=== PATIENT | female | born 1940 | race Caucasian/White ===

== ENCOUNTER → 2017-11-14 | Outpatient (CLI) | payer MEDICARE, OTHER ==
[~2017-11-14] MED LIST: ACET500 PO; ASPI325 PO; CALCIUM PO; CELE200 PO; CITA20 PO; CYCL0.05OP BOTHEYES; Celebrex200 MG PO; ERGO400 PO; FAMO20 PO; HYDACE5 PO; Hair, Skin & N1 EACH PO; IBUP800 PO; LEVSOD100 PO; LEVSOD50 PO; MAG PO; OMEP20ER PO; Prilosec Otc20 MG; SODCHL2SO OD; TOCO400 PO; TRAM50 PO; [UNRECOGNIZED DRUG - OTHER] PO
== END | disposition home or self-care (01) ==
LOC: PLD 12:40 → LAB SHORT 12:40
DX: D48.5 Neoplasm of uncertain behavior of skin (principal)
CPT/HCPCS: 88305

== ENCOUNTER 2018-08-17 11:31 | Day surgery (SDC) | payer MEDICARE, OTHER ==
[~2018-08-17] VITALS: Ht 162.6 cm; Wt 59.5 kg
== END 2018-08-17 13:35 | disposition home or self-care (01) ==
LOC: ORSCSDS 11:31
PROVIDERS: Internal Medicine Gastroenterology
PROC: 0DB98ZX Excision of Duodenum, Via Natural or Artificial Opening Endoscopic, Diagnostic (ICD-10-PCS; principal; 2018-08-17 12:45)
PROC: 0DBH8ZX Excision of Cecum, Via Natural or Artificial Opening Endoscopic, Diagnostic (ICD-10-PCS; principal; 2018-08-17 12:45)
PROC: 0DB68ZX Excision of Stomach, Via Natural or Artificial Opening Endoscopic, Diagnostic (ICD-10-PCS; principal; 2018-08-17 12:45)
DX: R10.13 Epigastric pain (principal); K21.9 Gastro-esophageal reflux disease without esophagitis; Z12.11 Encounter for screening for malignant neoplasm of colon; D12.0 Benign neoplasm of cecum; K29.80 Duodenitis without bleeding; K29.70 Gastritis, unspecified, without bleeding; K57.30 Diverticulosis of large intestine without perforation or abscess without bleeding; K64.8 Other hemorrhoids; E03.9 Hypothyroidism, unspecified; Z79.899 Other long term (current) drug therapy
CPT/HCPCS: 88305; 88342; J2704; J7120

== ENCOUNTER 2020-09-16 08:16 | Emergency (ER) | payer MEDICARE, OTHER ==
[~2020-09-16] VITALS: Ht 167.6 cm; Wt 72.6 kg
[~2020-09-16 08:16] MED LIST changes: +Macrobid 100 M100 MG PO; +Pyridium200 MG PO
[2020-09-16] MEDS ORDERED: REMERON15 M3 PO (08:34)
[2020-09-16] MEDS ORDERED: EUTHYROX88 MC1 (08:34)
[2020-09-16 08:42] LABS: BASOPHILS ABSOLUTE AUTO 0.04 K/mm3 (0.00-0.23); BASOPHILS PERCENT AUTO 1 % (0-2); EOSINOPHILS ABSOLUTE AUTO 0.21 K/mm3 (0.00-0.68); EOSINOPHILS PERCENT AUTO 4 % (0-6); Hematocrit 41.1 % (33.0-51.0); Hemoglobin 13.7 g/dL (11.5-16.0); IMMATURE GRAN ABSOLUTE AUTO 0.01 K/mm3 (0.00-0.10); IMMATURE GRAN PERCENT AUTO 0 % (0-1); LYMPHOCYTES ABSOLUTE AUTO 2.09 K/mm3 (0.84-5.20); LYMPHOCYTES PERCENT AUTO 40 % (21-46); MONOCYTES ABSOLUTE AUTO 0.55 K/mm3 (0.16-1.47); MONOCYTES PERCENT AUTO 10 % (4-13); Mean Corpuscular HGB 30.3 pg (26.0-34.0); Mean Corpuscular HGB Conc 33.3 g/dL (31.5-36.5); Mean Corpuscular Volume 91 fL (80-100); Mean Platelet Volume 9.6 fL (9.1-12.4); NEUTROPHILS ABSOLUTE AUTO 2.39 K/mm3 (1.96-9.15); NEUTROPHILS PERCENT AUTO 45 % (41-73); Platelet Count 223 K/mm3 (150-400); RDW Coefficient Variation 13.8 % (11.7-14.2); RDW Standard Deviation 46.4 fL (35.1-46.3); Red Blood Cell Count 4.52 M/mm3 (3.80-5.20); White Blood Cell Count 5.29 K/mm3 (4.00-11.30)
[2020-09-16 08:58] LABS: Alanine Aminotransfer (ALT/SGP 53 U/L (12-78); Albumin, Blood 3.4 g/dL (3.4-5.0); Albumin/Globulin Ratio 0.8 (0.8-1.8); Alk Phos 79 U/L (50-136); Anion Gap 4 mmol/L (6-16); Aspartate Aminotrans (AST/SGOT 35 U/L (12-37); Bilirubin, Total 0.3 mg/dL (0.1-1.0); Blood Urea Nitrogen 12 mg/dL (8-24); Bun/Creatinine Ratio 20.3 (12.0-20.0); CO2, Blood 27 mmol/L (21-32); Calcium, Blood 9.1 mg/dL (8.5-10.1); Chloride, Blood 107 mmol/L (98-108); Creatinine, Blood 0.59 mg/dL (0.40-1.00); Globulin, Blood 4.2 g/dL (2.2-4.0); Glomerular Filtration Rate >60 (60-); Glucose, Blood 96 mg/dL (70-99); Sodium, Blood 138 mmol/L (136-145); Total Protein, Blood 7.6 g/dL (6.4-8.2); Troponin I <0.015 ng/mL (0.000-0.040)
[2020-09-16] MEDS ORDERED: HYDR1TAB94 PO (09:54)
== END 2020-09-16 10:02 | disposition home or self-care (01) ==
LOC: ER 08:16
PROVIDERS: Physician Assistant
DX: R07.89 Other chest pain (principal); I10 Essential (primary) hypertension; Z79.899 Other long term (current) drug therapy
CPT/HCPCS: 36415; 71046; 80053; 84484; 85025; 85379; 93005; 93010; 96374; 99284-25; J1885

== ENCOUNTER → 2020-11-03 | Outpatient (CLI) | payer MEDICARE, OTHER ==
[~2020-11-03] MED LIST changes: +BISA10S PR; +CITRATE OF MAG296 M4 PO; +DOC250 PO; +EUTHYROX88 MC1; +HYDR1TAB94 PO; +REMERON15 M3 PO; +SENNA LAXATIVE8.6 MG PO
== END | disposition home or self-care (01) ==
LOC: LAB 09:14 → LAB SHORT 09:14
DX: N39.0 Urinary tract infection, site not specified (principal)
CPT/HCPCS: 87077; 87086; 87186

== ENCOUNTER 2020-12-05 14:16 | Emergency (ER) | payer MEDICARE, OTHER ==
[~2020-12-05] VITALS: Ht 160 cm; Wt 61.7 kg
[~2020-12-05 14:16] MED LIST changes: -BISA10S PR; -CITRATE OF MAG296 M4 PO; -DOC250 PO; -SENNA LAXATIVE8.6 MG PO
[2020-12-05 14:48] LABS: BASOPHILS ABSOLUTE AUTO 0.03 K/mm3 (0.00-0.23); BASOPHILS PERCENT AUTO 0 % (0-2); EOSINOPHILS ABSOLUTE AUTO 0.02 K/mm3 (0.00-0.68); EOSINOPHILS PERCENT AUTO 0 % (0-6); Hematocrit 41.7 % (33.0-51.0); Hemoglobin 13.6 g/dL (11.5-16.0); IMMATURE GRAN ABSOLUTE AUTO 0.04 K/mm3 (0.00-0.10); IMMATURE GRAN PERCENT AUTO 0 % (0-1); LYMPHOCYTES ABSOLUTE AUTO 0.77 K/mm3 (0.84-5.20); LYMPHOCYTES PERCENT AUTO 7 % (21-46); MONOCYTES ABSOLUTE AUTO 0.78 K/mm3 (0.16-1.47); MONOCYTES PERCENT AUTO 7 % (4-13); Mean Corpuscular HGB Conc 32.6 g/dL (31.5-36.5); Mean Corpuscular Volume 89 fL (80-100); Mean Platelet Volume 9.4 fL (9.1-12.4); NEUTROPHILS ABSOLUTE AUTO 10.27 K/mm3 (1.96-9.15); NEUTROPHILS PERCENT AUTO 86 % (41-73); Platelet Count 229 K/mm3 (150-400); RDW Coefficient Variation 13.1 % (11.7-14.2); RDW Standard Deviation 42.6 fL (35.1-46.3); Red Blood Cell Count 4.69 M/mm3 (3.80-5.20); White Blood Cell Count 11.91 K/mm3 (4.00-11.30)
[2020-12-05 15:16] LABS: Alanine Aminotransfer (ALT/SGP 32 U/L (12-78); Albumin, Blood 3.4 g/dL (3.4-5.0); Albumin/Globulin Ratio 0.7 (0.8-1.8); Alk Phos 61 U/L (50-136); Anion Gap 8 mmol/L (6-16); Aspartate Aminotrans (AST/SGOT 25 U/L (12-37); Bilirubin, Total 0.6 mg/dL (0.1-1.0); Blood Urea Nitrogen 13 mg/dL (8-24); Bun/Creatinine Ratio 20.8 (12.0-20.0); CO2, Blood 25 mmol/L (21-32); Calcium, Blood 9.5 mg/dL (8.5-10.1); Chloride, Blood 101 mmol/L (98-108); Creatinine, Blood 0.62 mg/dL (0.40-1.00); Globulin, Blood 4.8 g/dL (2.2-4.0); Glomerular Filtration Rate >60 (60-); Glucose, Blood 127 mg/dL (70-99); Potassium, Blood 3.9 mmol/L (3.5-5.5); Sodium, Blood 134 mmol/L (136-145); Total Protein, Blood 8.2 g/dL (6.4-8.2)
[2020-12-05] MEDS ORDERED: CITRATE OF MAG296 M4 PO (18:01)
[2020-12-05] MEDS ORDERED: DOC250 PO (18:01)
[2020-12-05] MEDS ORDERED: BISA10S PR (18:01)
[2020-12-05] MEDS ORDERED: SENNA LAXATIVE8.6 MG PO (18:01)
[2020-12-05 18:46] LABS: Source, Urine Clean Catch
[2020-12-05 18:52] LABS: Appearance, Urine Hazy (Clear); Bilirubin, Urine Neg (Neg); Blood, Urine 5+ (Neg); Color, Urine Yellow (P-Yellow); Glucose Qualitative, Urine Neg (Neg); Ketones, Urine 1+ (Neg); Leukocyte Esterase, Urine 3+ (Neg); Nitrite, Urine Neg (Neg); Protein, Urine 3+ (Neg); Urobilinogen, Urine NORM (Normal)
[2020-12-05 18:58] LABS: Bacteria Many /hpf
[2020-12-05 19:00] LABS: Squamous Epithelial Cells Few /hpf (Few)
[2020-12-05 19:01] LABS: Amorphous Not Seen (0-Heavy)
[2020-12-05 19:02] LABS: Calcium Oxalate Crystals Rare /hpf
[2020-12-05 19:03] LABS: Granular Casts Rare /lpf (0)
== END 2020-12-05 20:02 | disposition home or self-care (01) ==
LOC: ER 14:16
PROVIDERS: Physician Assistant; Student in an Organized Health Care Education/Training Program
DX: K59.00 Constipation, unspecified (principal); R33.9 Retention of urine, unspecified; R07.9 Chest pain, unspecified; I10 Essential (primary) hypertension; T40.2X5A Adverse effect of other opioids, initial encounter; Z79.899 Other long term (current) drug therapy; Z88.8 Allergy status to other drugs, medicaments and biological substances; Z88.6 Allergy status to analgesic agent
CPT/HCPCS: 36415; 51798; 71045; 74018; 80053; 81001; 84443; 85025; 93005; 93010; 96374; 99284-25; J1885; J7030

== ENCOUNTER → 2021-01-21 | Outpatient (CLI) | payer MEDICARE, OTHER ==
[~2021-01-21] MED LIST changes: +BISA10S PR; +CITRATE OF MAG296 M4 PO; +DOC250 PO; +SENNA LAXATIVE8.6 MG PO
== END | disposition home or self-care (01) ==
LOC: LAB SHORT 12:15
DX: D23.62 Other benign neoplasm of skin of left upper limb, including shoulder (principal)
CPT/HCPCS: 88305

== ENCOUNTER → 2021-03-08 | Outpatient (CLI) | payer MEDICARE, OTHER | LOC: LAB SHORT 15:15 → LAB 15:15 | DX: D48.5 Neoplasm of uncertain behavior of skin (principal); D23.62 Other benign neoplasm of skin of left upper limb, including shoulder; Z88.1 Allergy status to other antibiotic agents; Z88.8 Allergy status to other drugs, medicaments and biological substances | CPT/HCPCS: 88305 ==

== ENCOUNTER → 2021-09-23 | Outpatient (CLI) | payer MEDICARE, OTHER | END | disposition home or self-care (01) | LOC: LAB SHORT 10:06 → LAB 10:06 | DX: M81.0 Age-related osteoporosis without current pathological fracture (principal) | CPT/HCPCS: 36415; 82306 ==

== ENCOUNTER 2022-11-16 10:35 | Emergency (ER) | payer MEDICARE, OTHER ==
[~2022-11-16] VITALS: Ht 162.6 cm; Wt 65.8 kg
[2022-11-16 11:00] VITALS: BP 138/87
[2022-11-16 11:25] LABS: BASOPHILS ABSOLUTE AUTO 0.06 K/mm3 (0.00-0.23); BASOPHILS PERCENT AUTO 1 % (0-2); EOSINOPHILS ABSOLUTE AUTO 0.09 K/mm3 (0.00-0.68); EOSINOPHILS PERCENT AUTO 2 % (0-6); Hematocrit 41.8 % (33.0-51.0); Hemoglobin 14.2 g/dL (11.5-16.0); IMMATURE GRAN ABSOLUTE AUTO 0.01 K/mm3 (0.00-0.10); IMMATURE GRAN PERCENT AUTO 0 % (0-1); LYMPHOCYTES ABSOLUTE AUTO 1.62 K/mm3 (0.84-5.20); LYMPHOCYTES PERCENT AUTO 28 % (21-46); MONOCYTES ABSOLUTE AUTO 0.79 K/mm3 (0.16-1.47); MONOCYTES PERCENT AUTO 14 % (4-13); Mean Corpuscular HGB 30.7 pg (26.0-34.0); Mean Corpuscular Volume 90 fL (80-100); NEUTROPHILS ABSOLUTE AUTO 3.17 K/mm3 (1.96-9.15); NEUTROPHILS PERCENT AUTO 55 % (41-73); Platelet Count 247 K/mm3 (150-400); RDW Standard Deviation 46.5 fL (35.1-46.3); Red Blood Cell Count 4.63 M/mm3 (3.80-5.20); White Blood Cell Count 5.74 K/mm3 (4.00-11.30)
[2022-11-16 12:11] LABS: Albumin, Blood 3.5 g/dL (3.4-5.0); Albumin/Globulin Ratio 0.8 (0.8-1.8); Bilirubin, Total 0.4 mg/dL (0.1-1.0); Bun/Creatinine Ratio 31.6 (12.0-20.0); Creatinine, Blood 0.54 mg/dL (0.40-1.00); Globulin, Blood 4.4 g/dL (2.2-4.0); Potassium, Blood 3.9 mmol/L (3.5-5.5); Total Protein, Blood 7.9 g/dL (6.4-8.2)
[2022-11-16] MEDS ORDERED: MECL25 PO (14:10)
== END 2022-11-16 14:20 | disposition home or self-care (01) ==
LOC: ER 10:35
PROVIDERS: Physician Assistant
DX: R42 Dizziness and giddiness (principal); I10 Essential (primary) hypertension; Z79.899 Other long term (current) drug therapy; Z79.890 Hormone replacement therapy; Z88.8 Allergy status to other drugs, medicaments and biological substances
CPT/HCPCS: 71046; 80053; 83690; 84484; 85025; 93005; 93010; 96374; 99284-25; J2405

== ENCOUNTER → 2023-09-08 | Outpatient (CLI) | payer MEDICARE, OTHER | LOC: LAB 07:26 → LAB SHORT 07:26 | DX: R22.1 Localized swelling, mass and lump, neck (principal) ==

== ENCOUNTER 2024-02-07 11:28 | Day surgery (SDC) | payer MEDICARE, OTHER ==
[~2024-02-07] VITALS: Ht 160 cm; Wt 65.3 kg
[~2024-02-07 11:28] MED LIST changes: +MECL25 PO
[2024-02-07] MEDS ORDERED: PREG75 (12:24)
[2024-02-07] MEDS ORDERED: PANT40 (12:30)
[2024-02-07] MEDS ORDERED: METO25ER (12:30)
[2024-02-07] MEDS ORDERED: LOSA25 (12:31)
[2024-02-07] MEDS ORDERED: ASPI81CH (12:31)
[2024-02-07] MEDS ORDERED: MASOPHEN500 M1 (12:31)
[2024-02-07] MEDS ORDERED: ZOLEDRONIC ACID4 M1 (12:34)
[2024-02-07] MEDS ORDERED: SENN187 (12:34)
[2024-02-07] MEDS ORDERED: MULVITA (12:35)
[2024-02-07] MEDS ORDERED: Acerola C500 MG (12:35)
[2024-02-07] MEDS ORDERED: NITR.4SL (12:35)
[2024-02-07] MEDS ORDERED: PREG50 (12:38)
[2024-02-07] MEDS ORDERED: MELO7.5 (12:39)
[2024-02-07] MEDS ORDERED: Lactated Ringer's 1,000 ML IV ONE ×2 (13:10→13:35)
[2024-02-07] MEDS ORDERED: propofoL 50 ML IV ONE (13:35)
[2024-02-07 15:06] VITALS: BP 114/87
== END 2024-02-07 15:01 | disposition home or self-care (01) ==
LOC: ORSCSDS 11:28
PROVIDERS: Internal Medicine Gastroenterology
PROC: 0DJ08ZZ Inspection of Upper Intestinal Tract, Via Natural or Artificial Opening Endoscopic (ICD-10-PCS; principal; 2024-02-07 13:00)
PROC: 0DJD8ZZ Inspection of Lower Intestinal Tract, Via Natural or Artificial Opening Endoscopic (ICD-10-PCS; principal; 2024-02-07 13:00)
DX: K62.5 Hemorrhage of anus and rectum (principal); K21.9 Gastro-esophageal reflux disease without esophagitis; R13.10 Dysphagia, unspecified; K57.30 Diverticulosis of large intestine without perforation or abscess without bleeding; K44.9 Diaphragmatic hernia without obstruction or gangrene; Z79.82 Long term (current) use of aspirin; Z79.899 Other long term (current) drug therapy
CPT/HCPCS: J2704; J7120

== ENCOUNTER 2024-05-04 19:08 | Emergency (ER) | payer MEDICARE, OTHER ==
[~2024-05-04] VITALS: Ht 160 cm; Wt 67.1 kg
[~2024-05-04 19:08] MED LIST changes: +ASPI81CH; +Acerola C500 MG; +LOSA25; +MASOPHEN500 M1; +MELO7.5; +METO25ER; +MULVITA; +NITR.4SL; +PANT40; +PREG50; +PREG75; +SENN187; +ZOLEDRONIC ACID4 M1
[2024-05-04 19:33] VITALS: BP 204/105
[2024-05-04] MEDS ORDERED: Oxymetazoline 0.05% Nasal Relief Spray 15mL BTL ONE (19:45)
== END 2024-05-04 20:41 | disposition home or self-care (01) ==
LOC: ER 19:08
DX: R04.0 Epistaxis (principal); I10 Essential (primary) hypertension; E03.9 Hypothyroidism, unspecified; K21.9 Gastro-esophageal reflux disease without esophagitis; Z87.891 Personal history of nicotine dependence; Z91.018 Allergy to other foods; Z79.890 Hormone replacement therapy; Z79.82 Long term (current) use of aspirin; Z79.1 Long term (current) use of non-steroidal anti-inflammatories (NSAID); Z79.899 Other long term (current) drug therapy
CPT/HCPCS: 30901; 99283-25; A9270